=== PATIENT | male | born 1950 | race Caucasian/White ===

== ENCOUNTER 2016-11-20 11:34 | Emergency (ER) | payer OTHER ==
[2016-11-20 13:27] VITALS: BP 145/80
--- NOTE | 2016-11-20 13:57 | UC ---
FLU HPI - HPI Summary HPI Summary: complaint of nasal congestion and cough that started 2-3 days ago sinus congestion and sneezing mild sore throat that has resolved denies fever, headache,ear pain denies N/V/D exposed to influenza recently not taking any medication for his symptoms - History of Current Complaint Chief Complaint: UCRespiratory Stated Complaint: FLU SYMPTOMS Time Seen by Provider: 11/20/16 13:25 Hx Obtained From: Patient - Allergy/Home Medications Allergies/Adverse Reactions: Allergies Allergy/AdvReac Type Severity Reaction Status Date / Time Influenza A (H1N1) Allergy Intermediate Rash Verified 11/20/16 13:27 Monovalent Vacci Flu Virus Vaccine Allergy Rash Verified 11/20/16 13:27 PMH/Surg Hx/FS Hx/Imm Hx Previously Healthy: Yes Endocrine History Of: Reports: Diabetes Cardiovascular History Of: Reports: Hypertension - PATIENT STATES BEING TREATED - Surgical History Surgical History: Yes Surgery Procedure, Year, and Place: T&A CHILD. [facility] - Family History Known Family History: Negative: Cardiac Disease, Hypertension, Diabetes - Social History Occupation: Employed Full-time Lives: With Family Alcohol Use: Daily Substance Use Type: None Smoking Status (MU): Never Smoked Tobacco - Immunization History Most Recent Influenza Vaccination: allergic - does not get Review of Systems Constitutional: Negative Skin: Negative Eyes: Negative ENT: Nasal Discharge Respiratory: Cough Cardiovascular: Negative Gastrointestinal: Negative Genitourinary: Negative Motor: Negative Neurovascular: Negative Musculoskeletal: Negative Neurological: Negative Psychological: Negative All Other Systems Reviewed And Are Negative: Yes Physical Exam Triage Information Reviewed: Yes Appearance: No Pain Distress, Well-Nourished Vital Signs: Initial Vital Signs Temp 97.9 F 11/20/16 13:23 Pulse 52 11/20/16 13:23 Resp 16 11/20/16 13:23 BP 145/80 11/20/16 13:23 Pulse Ox 98 11/20/16 13:23 Vital Signs Reviewed: Yes Eyes: Positive: Conjunctiva Clear ENT: Positive: Pharyngeal erythema, Nasal congestion, TMs normal Neck: Positive: No Lymphadenopathy Respiratory: Positive: Lungs clear, Normal breath sounds, No respiratory distress, No accessory muscle use Cardiovascular: Positive: RRR, No Murmur Abdomen Description: Positive: Nontender, Soft Bowel Sounds: Positive: Present Musculoskeletal: Positive: No Edema Neurological Exam: Normal Psychological Exam: Normal Skin Exam: Normal Flu Course/Dx - Differential Dx/Diagnosis Differential Diagnosis/HQI/PQRI: Influenza, Upper Respiratory Infection Provider Diagnoses: URI Discharge - Discharge Plan Condition: Stable Disposition: HOME Patient Education Materials: Upper Respiratory Infection (ED) Referrals: Dipesh Michel MD [Primary Care Provider] - Additional Instructions: Your blood pressure is elevated. Please contact your primary care provider within 1 day -4 weeks for further evaluation. VIRAL UPPER RESPIRATORY INFECTION (COMMON COLD) What is Viral Upper Respiratory Infection? Viral upper respiratory infection is the medical term for the common cold. Respiratory infections can be caused by either a virus or bacteria. The common cold is caused by a virus. The virus travels through the air and can be passed easily from one person to another. This is one reason that it is so important to cover your mouth when you cough or sneeze. When you cover your mouth you will get the virus on your hands. If you touch something with that hand the virus is spread to the object you touch. Because of this you should be sure to wash your hands often when you have a cold. Symptoms usually begin 1 to 3 days after the virus takes hold in your body. Other people can catch your cold even before you start to notice symptoms, which is one reason why colds are hard to prevent. Symptoms May Include: Scratchiness or tickling in the throat Sore throat Stuffy nose Generalized aches and pains Coughing or sneezing Feeling tired Treatment Recommendations: Drink plenty of clear, nonalcoholic fluids, such as water, sports drinks, or juice. For example, an average adult should drink 8 ounces every hour, a child 6 to 10 years should drink 4 ounces every hour, and a child under 6 should drink 1 to 2 ounces every hour. You should rest as much as possible. You can use a cool-mist humidifier or steam vaporizer to increase air moisture. This will make it easier to breathe. Remember that a steam vaporizer may contain hot water that can cause severe gray. If you smoke, stopsmoke irritates bronchial passages. If you are coughing up mucus, and milk seems to make the sputum thicker, do not eat or drink foods that contain milk. You want to try to cough up mucous whenever possible so that you dont get pneumonia. Do not use cough suppressant medicine without your healthcare providers OK. You should take all medications prescribed until completely gone, or as instructed. Non-prescription medicine such as acetaminophen (Tylenol) or ibuprofen (Motrin , Advil) may help your aches, pains, and fever. Do not take someone else's medicine, or penicillin tablets that you may have saved. You could cause a more serious problem than you already have. Don't bundle up to sweat out a fever. It only makes your fever worse. If you feel cold, cover up; if you feel warm, dress lightly.
== END 2016-11-20 14:34 | disposition home or self-care (01) ==
LOC: UCEAST 11:34
DX: J06.9 Acute upper respiratory infection, unspecified (principal); I10 Essential (primary) hypertension; Z88.7 Allergy status to serum and vaccine
CPT/HCPCS: 87502; 99211; G0463

== ENCOUNTER 2017-02-21 20:19 | Observation (INO) | payer OTHER ==
[~2017-02-21 20:19] MED LIST: Heparin VIAL(*) 5000 UNITS/ML VIAL (FIVE THOUSAND) IV PRN
[2017-02-21] MEDS ORDERED: NS 0.9% 1000 ML* 1,000 ML IV ONE (20:53)
[2017-02-21 21:09] LABS: Hematocrit 42 % (42-52); Hemoglobin 14.3 g/dl (14.0-18.0); Mean Corpuscular HGB Conc 34 g/dl (31-36); Mean Corpuscular Hemoglobin 32 pg (27-31); Mean Corpuscular Volume 93 fL (80-94); Mean Platelet Volume 10 um3 (7.4-10.4); Red Cell Distribution Width 14 % (10.5-15); White Blood Count 12.4 10^3/ul (3.5-10.8)
[2017-02-21 21:24] LABS: ALT 25 U/L (7-52); Albumin 4.5 g/dL (3.2-5.2); Alkaline Phosphatase 56 U/L (34-104); BUN/Creatinine Ratio 23.9 (8-20); Blood Urea Nitrogen 21 mg/dL (6-24); CO2 Carbon Dioxide 21 mmol/L (22-32); Chloride 105 mmol/L (101-111); EGFR African American 111.4 (>60); EGFR Non-African American 86.6 (>60); Globulin 2.8 g/dL (2-4); Glucose 121 mg/dL (70-100); Sodium 132 mmol/L (133-145); Total Protein 7.3 g/dL (6.4-8.9)
[2017-02-21 21:25] LABS: Troponin I 0.03 ng/mL (<0.04)
[2017-02-21 21:45] LABS: Anion Gap 6 mmol/L (2-11)
--- NOTE | 2017-02-21 21:46 | ED ---
I, Oh,Sotammie, scribed for Joe Chadwick MD on 02/21/17 at 2054 . Palpitations / Dysrhythmia - HPI Summary HPI Summary: This 66 y/o male presents to ED for pounding palpitation since an hour ago. Pt was sitting in chair reading at time of onset. He reports "trouble staying awake ". Positive elevated blood pressure per pt. Blood pressure of 182/101 and irregular HR are noted at time of initial evaluation. Pt denies PMHx of known afib or irregular HR, but reports that FHx is positive for unspecified "irregular HR" to brother. Other PMHx includes HTN and DM. Primary care involves Dr. Michel and Dr. Barrios with last appointment in December 2016. - History of Current Complaint Chief Complaint: EDDysrhythmPalp Time Seen by Provider: 02/21/17 20:45 Hx Obtained From: Patient, Medical Records Onset/Duration: Still Present Timing: Constant Character: Pounding Aggravating: Nothing Alleviating: Nothing Associated Signs & Symptoms: Negative - Allergy/Home Medications Allergies/Adverse Reactions: Allergies Allergy/AdvReac Type Severity Reaction Status Date / Time Influenza A (H1N1) Allergy Intermediate Rash Verified 11/20/16 13:27 Monovalent Vacci Flu Virus Vaccine Allergy Rash Verified 11/20/16 13:27 Home Medications: Home Medications Cholecalciferol [Vitamin D] 1,000 unit PO DAILY 02/21/17 [History Confirmed 11/05] Fexofenadine (NF) [Debra 180 (NF)] 180 mg PO DAILY 02/21/17 [History Confirmed 02/21/17] Losartan TAB* [Cozaar TAB*] 50 mg PO DAILY 02/21/17 [History Confirmed 02/21/17] Aspirin [Aspirin 81 MG TAB] 162 mg PO DAILY 02/22/17 [History Confirmed 02/22/17 ] Atorvastatin* [Lipitor*] 40 mg PO DAILY 02/22/17 [History Confirmed 02/22/17] PMH/Surg Hx/FS Hx/Imm Hx Endocrine/Hematology History: Reports: Hx Diabetes Cardiovascular History: Reports: Hx Hypertension - PATIENT STATES BEING TREATED Musculoskeletal History: Reports: Hx Arthritis - PATIENT STATES IN LOWER SPINE, AND NECK Sensory History: Reports: Hx Contacts or Glasses - GLASSES FOR READING Denies: Hx Hearing Aid Opthamlomology History: Reports: Hx Contacts or Glasses - GLASSES FOR READING - Surgical History Surgery Procedure, Year, and Place: T&A CHILD. [facility] Hx Anesthesia Reactions: No Infectious Disease History: No Infectious Disease History: Denies: Traveled Outside the [place] in Last 30 Days - Family History Known Family History: Positive: Cardiac Disease - unspecified "irregular heart rate" to brother Negative: Hypertension, Diabetes - Social History Alcohol Use: Daily Hx Substance Use: No Substance Use Type: Reports: None Hx Tobacco Use: No Smoking Status (MU): Never Smoked Tobacco Review of Systems Negative: Fever Positive: Palpitations - pounding All Other Systems Reviewed And Are Negative: Yes Physical Exam Triage Information Reviewed: Yes Vital Signs On Initial Exam: Initial Vitals Temp Pulse Resp BP Pulse Ox 98.7 F 65 20 175/111 98 02/21/17 20:22 02/21/17 20:22 02/21/17 20:22 02/21/17 20:22 02/21/17 20:22 Vital Signs Reviewed: Yes Appearance: Positive: Well-Appearing, No Pain Distress Skin: Positive: Warm Head/Face: Positive: Normal Head/Face Inspection Eyes: Positive: VINCENT ENT: Positive: Hearing grossly normal Neck: Positive: Supple Respiratory/Lung Sounds: Positive: Clear to Auscultation, Breath Sounds Present Cardiovascular: Positive: IRR, Tachycardia Abdomen Description: Positive: Nontender, Soft Bowel Sounds: Positive: Present Musculoskeletal: Positive: Strength/ROM Intact Neurological: Positive: Alert, Oriented to Person Place, Time Diagnostics - Vital Signs Vital Signs Temp Pulse Resp BP Pulse Ox 02/21/17 20:22 98.7 F 65 20 175/111 98 - Laboratory Lab Results: Lab Results 02/21/17 02/21/17 Range/Units 21:00 21:00 WBC 12.4 H (3.5-10.8) 10^3/ul RBC 4.50 (4.0-5.4) 10^6/ul Hgb 14.3 (14.0-18.0) g/dl Hct 42 (42-52) % MCV 93 (80-94) fL MCH 32 H (27-31) pg MCHC 34 (31-36) g/dl RDW 14 (10.5-15) % Plt Count 191 (150-450) 10^3/ul MPV 10 (7.4-10.4) um3 Neut % (Auto) 57.6 (38-83) % Lymph % (Auto) 25.8 (25-47) % [place] % (Auto) 9.0 (1-9) % Eos % (Auto) 6.7 H (0-6) % Baso % (Auto) 0.9 (0-2) % Absolute Neuts (auto) 7.1 (1.5-7.7) 10^3/ul Absolute Lymphs (auto) 3.2 (1.0-4.8) 10^3/ul Absolute Monos (auto) 1.1 H (0-0.8) 10^3/ul Absolute Eos (auto) 0.8 H (0-0.6) 10^3/ul Absolute Basos (auto) 0.1 (0-0.2) 10^3/ul Absolute Nucleated RBC 0 10^3/ul Nucleated RBC % 0 Sodium 132 L (133-145) mmol/L Potassium TNP Chloride 105 (101-111) mmol/L Carbon Dioxide 21 L (22-32) mmol/L Anion Gap 6 (2-11) mmol/L BUN 21 (6-24) mg/dL Creatinine 0.88 (0.67-1.17) mg/dL Est GFR ( Amer) 111.4 (>60) Est GFR (Non-Af Amer) 86.6 (>60) BUN/Creatinine Ratio 23.9 H (8-20) Glucose 121 H (70-100) mg/dL Calcium 9.0 (8.6-10.3) mg/dL Magnesium TNP Total Bilirubin 0.40 (0.2-1.0) mg/dL AST TNP ALT 25 (7-52) U/L Alkaline Phosphatase 56 (34-104) U/L Troponin I 0.03 (<0.04) ng/mL Total Protein 7.3 (6.4-8.9) g/dL Albumin 4.5 (3.2-5.2) g/dL Globulin 2.8 (2-4) g/dL Albumin/Globulin Ratio 1.6 (1-3) TSH Pending Result Diagrams: 02/21/17 21:00 02/21/17 21:45 Lab Statement: Any lab studies that have been ordered have been reviewed, and results considered in the medical decision making process. - EKG 2022 EKG Rhythm: Atrial Fibrillation - at 121 bpm 2313 EKG Rhythm: Atrial Fibrillation - at 67 bpm Re-Evaluation - Re-Evaluation First Eval Change: Improved - hr slowerd with diltiazem, still afib, d/w hospitalist Course/Dx - Course Assessment/Plan: This 66 y/o male presents to ED for an hour-old pounding palpitation. Pt is still noted with afib at time of initial evaluation. Repeat EKGs at 2022 and 2313 PM are noted with afib with second EKG noted with slower HR after diltiazem IV. Bloodwork is noted with trop of 0.03. Dr. Tena, hospitalist commissioner conservation of resources, was consulted, and pt is accepted for admission. - Diagnoses Provider Diagnoses: New onset atrial fibrillation - Physician Notifications Discussed Care Of Patient With: Jose Angel Tena Time Discussed With Above Provider: 23:26 Instructed by Provider To: Admit As Inpatient - Critical Care Time Critical Care Time: 30-74 min Discharge - Discharge Plan Condition: Fair Disposition: ADMITTED TO [facility] The documentation as recorded by the Brayan grover Soohyun accurately reflects the service I personally performed and the decisions made by , Joe Chadwick MD.
[2017-02-21 21:52] LABS: TSH (Thyroid Stimulating Horm) 3.07 mcIU/mL (0.34-5.60)
[2017-02-21] MEDS ORDERED: Diltiazem IV* 5 MG/ML 5 ML VIAL (for loading dose/IV Push) (25 MG) IV SLOW PU ONE (22:46)
--- NOTE | 2017-02-21 23:36 | HP ---
H&P (Free Text) History and Physical: PCP: Ursula Michel MD Cardiology: Elizabet Barrios MD Date/Time of Evaluation: 02/21/2017 2330 CC: racing heart HPI: Mr Barreto is a 66YO male HX DM2 & HTN who presents with the sudden onset while reading of palpitations. He denies chest pain, SOB, N/V, sweats, and light -headedness. He reports similar episodes in the past which self-terminated after a brief period. He took his blood pressure noting it to be in the 180s systolic and decided to present for evaluation. PMedHx DM2 HTN Ambulatory Orders Nursing to reconcile. Asprin 2 tab PO DAILY 01/10/13 Lipotor 1 tab PO DAILY 01/10/13 amLODIPine TAB* [Norvasc 5 mg TAB*] 10 mg PO DAILY 01/10/13 metFORMIN* [Glucophage 500 MG TAB *] 1 tab PO DAILY 01/10/13 Cholecalciferol [Vitamin D] 1,000 unit PO DAILY 02/21/17 Fexofenadine (NF) [Debra 180 (NF)] 180 mg PO DAILY 02/21/17 Losartan TAB* [Cozaar TAB*] 50 mg PO DAILY 02/21/17 Allergies Influenza A (H1N1) Monovalent Vacci Allergy (Intermediate, Verified 11/20/16 13: 27) Rash Flu Virus Vaccine Allergy (Verified 11/20/16 13:27) Rash PSurgHx tonsillectomy L inguinal hernia repair SocHx: former smoker w/ ~15PYHX, mild alcohol, no recreational drugs; lives with his ; works for [employer]; full code status FamHx: Brother: arrhythmia ? AFIB ROS: as above, otherwise reviewed and all were negative Constitutional: NAD, normally developed, overweight white male vitals: Vital Signs Temp 37.1 C 02/21/17 20:22 Pulse 74 02/21/17 23:03 Resp 13 02/21/17 23:03 BP 114/77 02/21/17 23:03 Pulse Ox 95 02/21/17 23:03 Intake & Output 02/20/17 02/21/17 02/21/17 23:59 11:59 23:59 Intake Total 1000 Balance 1000 Weight 87.09 kg Intake: IV Fluids 1000 HEENM: atraumatic; sclera/conjunctiva: non-icteric/clear; hearing: clinically intact; oropharynx: clear, mucosa moist Neck: soft tissue: non-tender; thyroid: normal Pulmonary: clear to auscultation bilaterally, good aeration, no accessory muscle use CV: RR/RR, normal S1S2, no carotid bruit, no jugular venous distention, 2+ B DP/ PT, no edema Abdominal: soft, non-distended, non-tender, no rebound/guarding/rigidity, normoactive bowel sounds, no hepatosplenomegaly or masses, no costovertebral angle tenderness Musculoskeletal: general: grossly intact; gait: stable Integumental: normal appearance and texture of exposed skin Psychiatric orientation: AA&O to PPS affect: calm mood: cooperative eye contact: good content: reliable responses: timely insight: good Testing: Lab Results 02/21/17 02/21/17 02/21/17 Range/Units 21:00 21:00 21:00 WBC 12.4 H (3.5-10.8) 10^3/ul RBC 4.50 (4.0-5.4) 10^6/ul Hgb 14.3 (14.0-18.0) g/dl Hct 42 (42-52) % MCV 93 (80-94) fL MCH 32 H (27-31) pg MCHC 34 (31-36) g/dl RDW 14 (10.5-15) % Plt Count 191 (150-450) 10^3/ul MPV 10 (7.4-10.4) um3 Neut % (Auto) 57.6 (38-83) % Lymph % (Auto) 25.8 (25-47) % [place] % (Auto) 9.0 (1-9) % Eos % (Auto) 6.7 H (0-6) % Baso % (Auto) 0.9 (0-2) % Absolute Neuts (auto) 7.1 (1.5-7.7) 10^3/ul Absolute Lymphs (auto) 3.2 (1.0-4.8) 10^3/ul Absolute Monos (auto) 1.1 H (0-0.8) 10^3/ul Absolute Eos (auto) 0.8 H (0-0.6) 10^3/ul Absolute Basos (auto) 0.1 (0-0.2) 10^3/ul Absolute Nucleated RBC 0 10^3/ul Nucleated RBC % 0 INR (Anticoag Therapy) (0.89-1.11) Sodium 132 L (133-145) mmol/L Potassium TNP Chloride 105 (101-111) mmol/L Carbon Dioxide 21 L (22-32) mmol/L Anion Gap 6 (2-11) mmol/L BUN 21 (6-24) mg/dL Creatinine 0.88 (0.67-1.17) mg/dL Est GFR ( Amer) 111.4 (>60) Est GFR (Non-Af Amer) 86.6 (>60) BUN/Creatinine Ratio 23.9 H (8-20) Glucose 121 H (70-100) mg/dL Lactic Acid 0.7 (0.5-2.0) mmol/L Calcium 9.0 (8.6-10.3) mg/dL Magnesium TNP Total Bilirubin 0.40 (0.2-1.0) mg/dL AST TNP ALT 25 (7-52) U/L Alkaline Phosphatase 56 (34-104) U/L Troponin I 0.03 (<0.04) ng/mL Total Protein 7.3 (6.4-8.9) g/dL Albumin 4.5 (3.2-5.2) g/dL Globulin 2.8 (2-4) g/dL Albumin/Globulin Ratio 1.6 (1-3) TSH 3.07 (0.34-5.60) mcIU/mL 02/21/17 02/21/17 Range/Units 21:45 21:45 WBC (3.5-10.8) 10^3/ul RBC (4.0-5.4) 10^6/ul Hgb (14.0-18.0) g/dl Hct (42-52) % MCV (80-94) fL MCH (27-31) pg MCHC (31-36) g/dl RDW (10.5-15) % Plt Count (150-450) 10^3/ul MPV (7.4-10.4) um3 Neut % (Auto) (38-83) % Lymph % (Auto) (25-47) % [place] % (Auto) (1-9) % Eos % (Auto) (0-6) % Baso % (Auto) (0-2) % Absolute Neuts (auto) (1.5-7.7) 10^3/ul Absolute Lymphs (auto) (1.0-4.8) 10^3/ul Absolute Monos (auto) (0-0.8) 10^3/ul Absolute Eos (auto) (0-0.6) 10^3/ul Absolute Basos (auto) (0-0.2) 10^3/ul Absolute Nucleated RBC 10^3/ul Nucleated RBC % INR (Anticoag Therapy) 0.86 L (0.89-1.11) Sodium (133-145) mmol/L Potassium 3.7 Chloride (101-111) mmol/L Carbon Dioxide (22-32) mmol/L Anion Gap (2-11) mmol/L BUN (6-24) mg/dL Creatinine (0.67-1.17) mg/dL Est GFR ( Amer) (>60) Est GFR (Non-Af Amer) (>60) BUN/Creatinine Ratio (8-20) Glucose (70-100) mg/dL Lactic Acid (0.5-2.0) mmol/L Calcium (8.6-10.3) mg/dL Magnesium 2.0 Total Bilirubin (0.2-1.0) mg/dL AST 20 ALT (7-52) U/L Alkaline Phosphatase (34-104) U/L Troponin I (<0.04) ng/mL Total Protein (6.4-8.9) g/dL Albumin (3.2-5.2) g/dL Globulin (2-4) g/dL Albumin/Globulin Ratio (1-3) TSH (0.34-5.60) mcIU/mL ECG, personally reviewed: AFIB rate 121, no ischemia Impression: 66M presenting with new onset AFIB/RVR DIAGNOSIS & PLAN Primary new onset AFIB/RVR : heparin GTT : diltiazem GTT : start metoprolol IR 25mg PO BID in AM : telemetry : supplemental oxygen : check ECHO in AM : cardiology consult in AM at patient request to discuss anticoagulation : supportive care Secondary DM2 : consistent carb diet : continue metformin : check A1c HTN : continue losartan : hold amlodipine : start metoprolol IR 25mg BID in AM : monitor Admission Rational: CDU observation for new onset AFIB/RVR DVTp: heparin GTT Code Status: full HCP:
[2017-02-21] MEDS ORDERED: Melatonin (NF) 3 MG TAB PO PRN (23:43)
[2017-02-21] MEDS ORDERED: Albuterol 2.5 MG/3 ML NEB.SOL* (0.083%) INH PRN (23:43)
[2017-02-21] MEDS ORDERED: Acetaminophen TAB* 325 MG PO PRN (23:43)
[2017-02-21] MEDS ORDERED: Ondansetron INJ* 2 MG/ML VIAL IV PRN (23:45)
[2017-02-21] MEDS ORDERED: Heparin DRIP 25,000 UNITS(*) 25,000 UNITS/500 ML BAG IVPB SCH (23:45)
[2017-02-21] MEDS ORDERED: NS 0.9% 1000 ML* 1,000 ML IV SCH (23:45)
[2017-02-22] MEDS ORDERED: Atorvastatin* 40 MG TAB PO ONE
[2017-02-22] MEDS ORDERED: Atorvastatin* 40 MG TAB ONE (02:11)
[2017-02-22] MEDS ORDERED: Diltiazem DRIP* 100 MG/100 ML ADDV.BAG IVPB SCH (03:00)
[2017-02-22] MEDS ORDERED: Omeprazole CAP* 20 MG PO SCH (06:00)
[2017-02-22 06:42] LABS: Hematocrit 41 % (42-52); Hemoglobin 13.6 g/dl (14.0-18.0); Mean Corpuscular HGB Conc 33 g/dl (31-36); Mean Corpuscular Hemoglobin 32 pg (27-31); Mean Corpuscular Volume 95 fL (80-94); Mean Platelet Volume 10 um3 (7.4-10.4); Red Blood Count 4.27 10^6/ul (4.0-5.4); Red Cell Distribution Width 14 % (10.5-15); White Blood Count 8.4 10^3/ul (3.5-10.8)
[2017-02-22 06:46] LABS: BUN/Creatinine Ratio 16.2 (8-20); Calcium 8.5 mg/dL (8.6-10.3); EGFR African American 90.9 (>60); EGFR Non-African American 70.7 (>60)
[2017-02-22 06:48] LABS: Troponin I 0.02 ng/mL (<0.04)
[2017-02-22 06:52] LABS: Potassium 4.3 mmol/L (3.5-5.0)
[2017-02-22 08:43] VITALS: BP 135/61
[2017-02-22] MEDS ORDERED: Aspirin EC Low Dose* 81 MG TAB.EC PO SCH (09:00)
[2017-02-22] MEDS ORDERED: Metoprolol Tartrate TAB* 25 MG PO SCH (09:00)
[2017-02-22] MEDS ORDERED: Losartan TAB* 25 MG PO SCH (09:00)
[2017-02-22] MEDS ORDERED: Docusate CAP* 100 MG PO SCH (09:00)
[2017-02-22] MEDS ORDERED: amLODIPine TAB* 5 MG PO SCH (09:00)
--- NOTE | 2017-02-22 09:58 | ECHO ---
Patient: CASTRO VEGAS [facility] Rec#: [id number] : 1950 Date: 02/22/2017 Age: 66y Height: 175.26 cm / 69.0 in Weight: 87.09 kg / 191.9 lbs Sex: M BSA: 2.03 Room#: 431 Admit Date#: 02/21/2017 Type: Inpatient Referring: Jose Angel Tena MD Reading: Elton Stinson DO Product Marketing Analyst: Anca Parekh RDCS,RDMS CC: Dipesh Michel MD Transthoracic Echocardiogram Indication: AFIB BP: 108/67 HR: 50 Rhythm: Bradycardia Findings History: HTN, DM Technical Comments: The study quality is good. Completed 08 Left Ventricle: The left ventricular chamber size is normal. Mild to moderate concentric left ventricular hypertrophy is observed. Global left ventricular wall motion and contractility are within normal limits. There is normal left ventricular systolic function. The estimated ejection fraction is 55-60%. Abnormal left ventricular diastolic filling is observed, consistent with impaired relaxation. Left Atrium: The left atrium is mildly dilated. Right Ventricle: The right ventricular chamber size and systolic function are within normal limits. Right Atrium: The right atrium is mildly dilated. Aortic Valve: The aortic valve is trileaflet. Systolic excursion of the aortic valve is normal. There is no evidence of aortic regurgitation. There is no evidence of aortic stenosis. Mitral Valve: The mitral valve leaflets are mildly thickened. There is mild mitral regurgitation. There is no evidence of mitral stenosis. Tricuspid Valve: The tricuspid valve leaflets are normal. There is trace tricuspid regurgitation. Unable to estimate the right ventricular systolic pressure. Pulmonic Valve: The pulmonic valve appears normal. There is a trace pulmonic regurgitation. There is no pulmonic stenosis. Pericardium: There is no significant pericardial effusion. Aorta: The aortic root appears normal. There is no dilatation of the aortic arch. Pulmonary Artery: The main pulmonary artery appears normal. Venous: The inferior vena cava appears normal. There is a greater than 50% respiratory change in the inferior vena cava dimension. Conclusions The left ventricular chamber size is normal. Mild to moderate concentric left ventricular hypertrophy is observed. There is normal left ventricular systolic function. Global left ventricular wall motion and contractility are within normal limits. The estimated ejection fraction is 55-60%. The left atrium is mildly dilated. The right ventricular chamber size and systolic function are within normal limits. There is mild mitral regurgitation. Compared to prior echo from 10/2008, the LV wall appears more hypertrophied (was borderline previously) Measurements Name Value Normal Range RVIDd (AP) 2D 3.4 cm (0.9 - 2.6) RVDdMajor (2D) 3.9 cm (2.2 - 4.4) RAd ISD 4CH 5.4 cm (3.4 - 4.9) RA (A4C)W 4.3 cm (2.9 - 4.6) IVSd (2D) 1.4 cm (0.6 - 1) LVPWd (2D) 1.4 cm (0.6 - 1) LVIDd (2D) 4.1 cm (3.6 - 5.4) LVIDs (2D) 2.7 cm - LV FS (2D) 35 % (25 - 45) Aortic Annulus 2 cm (1.4 - 2.6) Ao root diameter (2D) 3 cm (2.1 - 3.5) Ascending Ao 3.2 cm (2.1 - 3.4) Aortic arch 2.9 cm (1.8 - 3.4) LA dimension (AP) 2D 4 cm (2.3 - 3.8) LAd ISD 4CH 6.4 cm (2.9 - 5.3) LA ISD 4CH W 5.4 cm (2.5 - 4.5) Name Value Normal Range LA ESV SP 4CH (A/L) 76.58 ml - LA ESV SP 2CH (A/L) 104.64 ml - LA ESV BP (A/L) 91.64 ml - LA ESV BP (A/L) index 45 ml/m2 - LA ESV SP 4CH (MOD) 70.1 ml - LA ESV SP 2CH (MOD) 100.11 ml - Name Value Normal Range MV E-wave Vmax 0.6 m/sec - MV deceleration time 189 msec - MV A-wave Vmax 0.6 m/sec - MV E:A ratio 1 ratio - P. vein S-wave Vmax 0.5 m/sec - P. vein D-wave Vmax 0.3 m/sec - P. vein S:D Vmax ratio 1.5 ratio - P. vein A-wave duration 171 msec - LV septal e' Vmax 0.05 m/sec - LV lateral e' Vmax 0.06 m/sec - LV E:e' septal ratio 12 ratio - LV E:e' lateral ratio 10 ratio - Name Value Normal Range AV Vmax 1.4 m/sec - AV VTI 31 cm - AV peak gradient 8 mmHg - AV mean gradient 4.4 mmHg - LVOT Vmax 1.1 m/sec - LVOT VTI 24 cm - LVOT peak gradient 5 mmHg - LVOT mean gradient 2.2 mmHg - BIRDIE Vmax 0.7 m/sec - Name Value Normal Range RAP 8 mmHg - IVC diameter 1.6 cm - Name Value Normal Range PV Vmax 0.8 m/sec - PV peak gradient 2.6 mmHg -
--- NOTE | 2017-02-22 10:02 | DCNOTE ---
Subjective Date of Service: 02/22/17 Interval History: Feels much better this AM. He was asleep when he converted to NSR. No new c/o. Objective Active Medications: Acetaminophen (Tylenol Tab*) 650 mg PO Q6H PRN PRN Reason: FEVER/PAIN Albuterol (Ventolin 2.5 Mg/3 Ml Neb.Edel*) 2.5 mg INH Q2H PRN PRN Reason: SOB/WHEEZING Aspirin (Aspirin Ec Low Dose*) 81 mg PO DAILY [facility] Last Admin: 02/22/17 08:50 Dose: 81 mg Heparin Sodium (Porcine) (Heparin Vial(*)) 0 units IV .BOLUS PRN PRN Reason: PER HEPARIN GTT BOLUS DOSING Last Admin: 02/22/17 02:41 Dose: 6,800 units Heparin Sodium/Dextrose (Heparin Drip 25,000 Units(*)) 25,000 units in 500 mls @ 0 mls/hr IVPB .(INITIAL RATE) DON; Per Protocol PRN Reason: Protocol Last Admin: 02/22/17 02:41 Dose: 25 mls/hr Losartan Potassium (Cozaar Tab*) 50 mg PO DAILY [facility] Last Admin: 02/22/17 08:50 Dose: 50 mg Omeprazole (Prilosec Cap*) 20 mg PO DAILY@0600 [facility] Last Admin: 02/22/17 07:11 Dose: 20 mg Ondansetron HCl (Zofran Inj*) 4 mg IV Q6H PRN PRN Reason: NAUSEA Vital Signs 02/22/17 02/22/17 02/22/17 00:00 00:01 00:25 Temperature Pulse Rate 65 63 Respiratory 8 11 16 Rate Blood Pressure 114/68 (mmHg) O2 Sat by Pulse 95 96 Oximetry 02/22/17 02/22/17 02/22/17 00:30 01:00 01:21 Temperature Pulse Rate 48 60 Respiratory 9 13 Rate Blood Pressure 132/89 119/70 (mmHg) O2 Sat by Pulse 97 97 96 Oximetry 02/22/17 02/22/17 02/22/17 01:32 03:00 03:02 Temperature 97.8 F Pulse Rate 90 57 98 Respiratory 16 14 20 Rate Blood Pressure 140/71 113/75 (mmHg) O2 Sat by Pulse 95 79 100 Oximetry 02/22/17 02/22/17 02/22/17 03:11 03:15 03:20 Temperature Pulse Rate 94 95 95 Respiratory 14 16 15 Rate Blood Pressure 141/75 128/71 122/57 (mmHg) O2 Sat by Pulse 98 99 99 Oximetry 02/22/17 02/22/17 02/22/17 03:30 03:45 03:46 Temperature 98.7 F Pulse Rate Respiratory 15 14 20 Rate Blood Pressure 131/79 117/55 (mmHg) O2 Sat by Pulse 94 Oximetry 02/22/17 02/22/17 02/22/17 04:00 04:15 04:30 Temperature Pulse Rate 93 95 95 Respiratory 21 14 11 Rate Blood Pressure 122/58 107/57 116/70 (mmHg) O2 Sat by Pulse 98 97 95 Oximetry 02/22/17 02/22/17 02/22/17 04:39 04:41 04:45 Temperature Pulse Rate 94 94 Respiratory 18 12 Rate Blood Pressure 73/45 75/42 111/62 (mmHg) O2 Sat by Pulse 96 96 Oximetry 02/22/17 02/22/17 02/22/17 05:00 08:41 09:28 Temperature 98.8 F Pulse Rate 55 52 Respiratory 8 16 12 Rate Blood Pressure 108/67 135/61 (mmHg) O2 Sat by Pulse 95 94 96 Oximetry Oxygen Devices in Use Now: None Appearance: Alert, partly up in bed. In good spirits. Looks comfortable. Eyes: No Scleral Icterus Ears/Nose/Mouth/Throat: Clear Oropharnyx, Mucous Membranes Moist Neck: NL Appearance and Movements; NL JVP, No Thyroid Enlargement, Masses Respiratory: Symmetrical Chest Expansion and Respiratory Effort, Clear to Auscultation, Clear to Percussion Cardiovascular: NL Sounds; No Murmurs; No JVD, RRR, No Edema, - Extremities: No Edema, No Clubbing, Cyanosis, - Skin: No Rash or Ulcers, No Nodules or Sclerosis, - Neurological: Alert and Oriented x 3, NL Sensation Result Diagrams: 02/22/17 06:05 02/22/17 06:05 Additional Lab and Data: Lab Results 02/21/17 02/21/17 Range/Units 21:00 21:00 WBC 12.4 H (3.5-10.8) 10^3/ul RBC 4.50 (4.0-5.4) 10^6/ul Hgb 14.3 (14.0-18.0) g/dl Hct 42 (42-52) % MCV 93 (80-94) fL MCH 32 H (27-31) pg MCHC 34 (31-36) g/dl RDW 14 (10.5-15) % Plt Count 191 (150-450) 10^3/ul MPV 10 (7.4-10.4) um3 Neut % (Auto) 57.6 (38-83) % Lymph % (Auto) 25.8 (25-47) % [place] % (Auto) 9.0 (1-9) % Eos % (Auto) 6.7 H (0-6) % Baso % (Auto) 0.9 (0-2) % Absolute Neuts (auto) 7.1 (1.5-7.7) 10^3/ul Absolute Lymphs (auto) 3.2 (1.0-4.8) 10^3/ul Absolute Monos (auto) 1.1 H (0-0.8) 10^3/ul Absolute Eos (auto) 0.8 H (0-0.6) 10^3/ul Absolute Basos (auto) 0.1 (0-0.2) 10^3/ul Absolute Nucleated RBC 0 10^3/ul Nucleated RBC % 0 Sodium 132 L (133-145) mmol/L Potassium TNP Chloride 105 (101-111) mmol/L Carbon Dioxide 21 L (22-32) mmol/L Anion Gap 6 (2-11) mmol/L BUN 21 (6-24) mg/dL Creatinine 0.88 (0.67-1.17) mg/dL Est GFR ( Amer) 111.4 (>60) Est GFR (Non-Af Amer) 86.6 (>60) BUN/Creatinine Ratio 23.9 H (8-20) Glucose 121 H (70-100) mg/dL Calcium 9.0 (8.6-10.3) mg/dL Magnesium TNP Total Bilirubin 0.40 (0.2-1.0) mg/dL AST TNP ALT 25 (7-52) U/L Alkaline Phosphatase 56 (34-104) U/L Troponin I 0.03 (<0.04) ng/mL Total Protein 7.3 (6.4-8.9) g/dL Albumin 4.5 (3.2-5.2) g/dL Globulin 2.8 (2-4) g/dL Albumin/Globulin Ratio 1.6 (1-3) TSH Pending Assess/Plan/Problems-Billing Assessment: - Patient Problems (1) Atrial fibrillation Current Visit: Yes Status: Acute Code(s): I48.91 - UNSPECIFIED ATRIAL FIBRILLATION SNOMED Code(s): 15864281 Comment: Minor palpitations in past ? previous short bursts of atrial fib. Echos and stress tests in past all OK. Today's echo report pending. Troponin wnl x 2. Clayton-Vasc score 2, would recommend anticoagulation. No clear precipitating incident, patient consumed about his usual amount of caffeine and alcohol recently. Dr. Stinson to consult. (2) HTN (hypertension) Current Visit: Yes Status: Acute Code(s): I10 - ESSENTIAL (PRIMARY) HYPERTENSION SNOMED Code(s): 20484735 Comment: Hold amlodipine. Pt monitors his BP at home. Fup Denis Campa. (3) Diabetes Current Visit: Yes Status: Acute Code(s): E11.9 - TYPE 2 DIABETES MELLITUS WITHOUT COMPLICATIONS SNOMED Code(s): 35180051 Comment: Metformin on hold, can resume at home. Pt checks his FS glucose daily before breakfast.
[2017-02-22] MEDS ORDERED: Rivaroxaban TAB(*) 20 MG TAB PO SCH (11:30)
--- NOTE | 2017-02-22 12:02 | CONSULT ---
Subjective Date of Service: 02/22/17 Interval History: Date of admission 02/21/2017 DOS 02/22/2017 Service: Hospitalist General Ii Farmworker: Dr. Barrios Primary Care Physician: Dipesh Michel MD CC: Palpitations Reason for consult: Atrial fibrillation HPI Mr. Barreto is a 66 year old man with a history of hypertension, hypertensive heart disease, diabetes, asymptomatic CAD who presents with palpitations last evening. He was found in rapid atrial fibrillation initial HR ~ 120's. He was given an IV bolus and infusion of diltiazem and heparin gtt. He spontaneously cardioverted while sleeping and on a diltiazem gtt with a 3.5 second post conversion pause followed by sinus bradycardia in the high 30's. He is now at sinus bradycardia in the 50's. His atenolol was stopped several months ago due to bradycardia. He denies any current lightheadedness. He had no chest pain or dyspnea associated with the Afib. Denies any recent presyncope or syncope. He had felt his heart beating funny a few times while laying on his side at night but that was nothing like this which he has never experienced before. Drank excessive amount of wine Tuesday at a libertarian. Walked 18 holes yesterday AM felt good no symptoms. Had 2 beer afterwards and a cup of coffee yesterday AM. Dozed off to sleep later in day and that is when symptoms started. His notices loud snoring at times. Exercises regularly no symptoms. We spent a long time talking about atrial fibrillation today. We talked about the role of alcohol and caffeine. We talked a lot about anticoagulation. Given CHADs2- vasc score of 3 I recommended anticoagulation until at the very least he follows up with his regular assistant pastry chef. We talked about warfarin and NOAC's. We have decided to start xarelto 20 mg PO daily for now, I am not sure if his insurance will cover eliquis. He understands there is no FDA approved reversal agent. He understands the risks of this medication including but not limited to life threatening hemorrhage from intracranial bleeding, bleeding related to GI hemorrhage and bleeding related to trauma. He accepts this risk in favor of the expected benefit the medication will provide including ischemic stroke reduction. Echocardiogram today showed mild-moderate LVH, normal LVEF and at least a mildly dilated left atrial with mild MR. Current meds prior to visit: Norvasc 10 mg take 1 tab po daily Vitamin D-1000 Maximum Strength 1000 Unit 1 by mouth every day Losartan Potassium 25 mg 2 tablets daily Lipitor 40 mg 1 by mouth at bedtime Asa 81mg 2 po qd Metformin HCL 500 mg 1 po qd Nexium 40 mg 1 by mouth every day as needed Fexofenadine HCL 180 mg 1 by mouth every day Allergy Injections 2 injections qow Nasal [place] 2 spray each nostril twice daily medication list reviewed verbally on 01/07/2017 Allergies: No Known Drug Allergy 09/25/08 Flu Serum 09/25/08 - transverse myelitis Dust Mites 03/17/15 Grass 04/27/16 Mold 04/27/16 Cats 04/27/16 allergy list reviewed on 01/07/2017 PMH: Pure hypercholesterolemia Type 2 diabetes mellitus Benign essential hypertension Coronary Artery Disease (CAD) - (08/19/2008) Calcium score: 1647 with extensive atherosclerotic plaque between the 90th and 100th percentile for 59 year old males. 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 Personal Habits: Smoking: Patient is a former smoker.Cigarette Use: Former Cigarette Smoker 1 Pack Daily - smoked for 15 years-quit 25 years ago.Alcohol: Consumes 2 glasses of wine per day.Daily Caffeine: Consumes on average 2 cups of regular coffee per day - 1 cup of tea rarley. Medications Active Medications: Acetaminophen (Tylenol Tab*) 650 mg PO Q6H PRN PRN Reason: FEVER/PAIN Albuterol (Ventolin 2.5 Mg/3 Ml Neb.Edel*) 2.5 mg INH Q2H PRN PRN Reason: SOB/WHEEZING Losartan Potassium (Cozaar Tab*) 50 mg PO DAILY [facility] Last Admin: 02/22/17 08:50 Dose: 50 mg Omeprazole (Prilosec Cap*) 20 mg PO DAILY@0600 [facility] Last Admin: 02/22/17 07:11 Dose: 20 mg Ondansetron HCl (Zofran Inj*) 4 mg IV Q6H PRN PRN Reason: NAUSEA Rivaroxaban (Xarelto (*)) 20 mg PO DAILY [facility] Last Admin: 02/22/17 11:35 Dose: 20 mg Home Medications: Review of Systems - Measurements Intake and Output: Intake and Output Last 24 Hours 02/20/17 02/21/17 02/22/17 02/23/17 06:59 06:59 06:59 06:59 Intake Total 749.7 380 Balance 749.7 380 Weight 200 lb 11.2 oz Intake: IV Fluids 685 NS (0.9%) 300 IVPB 8 Heparin 56.7 Oral 0 380 Other: # Bowel Movements 0 # Voids 0 - Review of Systems Constitutional Symptoms: Negative: Weight Gain, Weight Loss, Fever, Night Sweats Dermatology: Negative: Rash, Skin Lesions HEENT: Negative: Change in Hearing, Vertigo, Tinnitus Eyes: Negative: Change in Vision, Double Vision, Eye Pain Thyroid: Negative: Goiter, Thyroid Nodule, Cold Intolerance, Heat Intolerance, Sweatiness, Tremor, Frequent Defecation, Constipation, Palpitations, Primary Hypothyroidism, Primary Hyperthyroidism Pulmonary: Negative: Wheezing, Respiratory Distress, Shortness of Breath, COPD, Asthma, Exercise Intolerance, Home Oxygen Cardiology: Positive: Palpitations Negative: Chest Pain, Shortness of Breath, Swelling of Ankles, Peripheral Vascular Dis, Edema, Faintness, Syncope, Claudication, Paroxysmal Nocturnal Dyspnea, Orthopnea Gastroenterology: Negative: Abdominal Pain, Nausea, Vomiting, Anorexia, Indigestion, Difficulty Swallowing, Heartburn, Constipation, Diarrhea, Blood in Stools, Change in Bowel Habits, Haematemesis, Melena Genital - Urinary: Negative: Dysuria, Hematuria Musculoskeletal: Negative: Joint Pain, Joint Stiffness, Arthritis Endocrinology: Positive: Diabetes Negative: Thyroid Problems, Family Hx Endocrine Disorders, Obesity, Hyperglycemia, Hypoglycemia, Polydipsia, Polyuria, Gynecomastia, Pituitary Disease Hematologic/Lymphatic: Positive: Use of Antiplatelet Drugs Negative: Anemia, Easy Brusing, Hx Leukemia, Hx Lymphoma, Use of Anticoagulant, Other Neurology: Negative: Change in Vision, Diplopia, Dizziness, Change in Balancing, Change in Coordination, Change in Memory, Change in Speech, Change in Sphincter Function, Change in Walking, Numbness\Paresthesiae, Hx of Stroke\TIA, Hx Seizures Psychiatry: Negative: Adhedonia, Sexual Dysfunction, Weight Change, Guilt Feelings, Tearfulness, Unusual Fatigue, Unusual Anxiety, Suicidal Ideation, Hypomania, Eating Disorders Allergic/Immunologic: Positive: Hx Environmental Allergies Negative: Hx HIV, Immunocompromise Review of Systems Statement: All other review of systems negative, unless stated above. Objective Vital Signs: Temp Pulse Resp BP Pulse Ox 98.8 F 52 12 135/61 96 02/22/17 08:41 02/22/17 09:28 02/22/17 09:28 02/22/17 08:41 02/22/17 09:28 Oxygen Devices in Use Now: None Appearance: pleasant, nad Neck: NL Appearance and Movements; NL JVP Respiratory: Symmetrical Chest Expansion and Respiratory Effort, Clear to Auscultation Cardiovascular: NL Sounds; No Murmurs; No JVD, RRR, No Edema Abdominal: NL Sounds; No Tenderness; No Distention Extremities: No Edema Skin: No Rash or Ulcers Neurological: Alert and Oriented x 3 Laboratory Results: 02/22/17 06:05 02/22/17 06:05 INR (Anticoag Therapy) 0.86 (0.89-1.11) L 02/21/17 21:45 APTT 29.1 seconds (26.0-36.3) 02/22/17 02:20 Total Bilirubin 0.40 mg/dL (0.2-1.0) 02/21/17 21:00 AST 20 U/L (13-39) 02/21/17 21:45 ALT 25 U/L (7-52) 02/21/17 21:00 Alkaline Phosphatase 56 U/L (34-104) 02/21/17 21:00 Total Protein 7.3 g/dL (6.4-8.9) 02/21/17 21:00 Albumin 4.5 g/dL (3.2-5.2) 02/21/17 21:00 Globulin 2.8 g/dL (2-4) 02/21/17 21:00 Albumin/Globulin Ratio 1.6 (1-3) 02/21/17 21:00 TSH 3.07 mcIU/mL (0.34-5.60) 02/21/17 21:00 02/21/17 02/22/17 21:00 06:05 Troponin I 0.03 0.02 mg 2.0 Diagnostic Imaging: Cardiac Testing: Stress Test - (03/17/2015) 13 minutes and 14 seconds to 14.8 mets. He had normal sinus rhythm at rest with occasional rare PVCs and rare APCs with stress and up to [address] depressions inferolaterally with stress. They recovered promptly in recovery and then recurred later in recovery with horizontal 1-mm inferolateral ST depressions. His EF was normal at rest, 55% to 60% with mild LVH of 13 mm. He had a normal hyperdynamic response to exercise, EF of 80%. Stress Test - (04/30/2013) Stress Echocardiogram - (04/2013) 13 minutes of a Mehran to 14.8 METS. He had mild resting hypertension and mildly hypertensive blood pressure response up to .[address] depressions inferior laterally in recovery, normal EF at rest 60% , normal hyperdynamic response to exercise to 80%, similar to 2008 and improved compared to 2010 when he completed 9 minutes and 39 seconds. EKG Data: EKG 1 02/21/2017: Rapid Afib rate 120 bpm, non-specific st changes EKG 2 : Rate controlled Afib, non-specific inferior t changes EKG 3 02/22/2017 AM Sinus bradycardia 49 bpm (HR slower but otherwise appears similar to 01/07/2017 EKG Assessment/Plan Mr. Barreto is a 66 year old man with a history of hypertension, hypertensive heart disease, diabetes, asymptomatic CAD, asymptomatic sinus bradycardia worsened with atenolol who presents with symptomatic rapid atrial fibrillation of less than 24 hours duration now spontaneous converted on diltiazem gtt and asymptomatic, chads2-vasc score 3. - Stop heparin gtt and start xarelto 20 mg PO daily (ordered). - Continue other P[facility]ER cardiac medications except stop aspirin while on anticoagulation and avoid NSAIDs (discussed) - Patient will avoid alcohol and work on weight loss - Patient should follow up with Dr. Barrios for further evaluation and management. - Discussed with Dr. Ge Thank you for allowing me to participate in the cardiovascular care of this patient. Please do not hesitate to contact me with questions or concerns.
--- NOTE | 2017-02-22 17:26 | DS ---
CC: Dr. Diamond; Dr. Elton Stinson DISCHARGE SUMMARY: DATE OF ADMISSION: DATE OF DISCHARGE: 02/22/17 HOSPITAL COURSE: This 66-year-old man presented with palpitations. It occurred after dinner on the evening of admission. He had had a couple of beers at lunch. He played golf early in the morning. He had his usual amount of caffeine. He felt he had had this normal amount of alcohol that day and also recently there was really no precipitating event. He had had minor feelings of palpitations i n the past, nothing that ever prompted him to seek medical attention. He said this was more severe sensation. It certainly lasted many hours. He was found to be in atrial fibrillation with rapid ve ntricular response. He was put on diltiazem drip. He was monitored on telemetry unit. The troponin s were within normal limits. About 4:45 in the morning, while he was sleeping, he converted to the s inus rhythm. He felt quite well when he woke up the morning of discharge. Dr. Stinson saw him in consultation. The patient had an echocardiogram. Because of his hypertension and diabetes, he is at an increased risk for having stroke. He was started on rivaroxaban, which h e was advised to continue indefinitely. He did not get amlodipine on day of discharge, but will res ume that at home the following day. FINAL DIAGNOSES: 1. Atrial fibrillation. 2. Hypertension. 3. Diabetes. DISCHARGE MEDICATIONS: 1. Rivaroxaban 20 mg daily. 2. Metformin 500 mg daily. 3. Amlodipine 10 mg daily. 4. Fexofenadine 180 mg daily. 5. Losartan 50 mg daily. 6. Vitamin D 1000 units daily. 7. Atorvastatin 40 mg daily. 8. Aspirin 162 mg daily. [id number]/[facility] #: [id number]
== END 2017-02-22 12:00 | disposition home or self-care (01) ==
LOC: ED 20:19 → MEDTELE 23:30
PROVIDERS: ADMIT Hospitalist; ATTEND Internal Medicine
DX: I48.91 Unspecified atrial fibrillation (principal); I10 Essential (primary) hypertension; E11.9 Type 2 diabetes mellitus without complications; I51.7 Cardiomegaly; Z79.82 Long term (current) use of aspirin; Z79.84 Long term (current) use of oral hypoglycemic drugs; Z79.899 Other long term (current) drug therapy; Z87.891 Personal history of nicotine dependence
CPT/HCPCS: 36415; 80048; 80053; 83605; 83735; 84443; 84484; 85025; 85027; 85610; 85730; 93005; 93306; 96365; 96366; 96375; 99291; A9270-GY; G0378; J1644